=== PATIENT | male | born 1965 | race Caucasian/White ===

== ENCOUNTER 2017-03-08 15:08 | Emergency (ER) | payer OTHER ==
[~2017-03-08] VITALS: Ht 174 cm; Wt 107.1 kg
[~2017-03-08 15:08] MED LIST: CYAN100T PO; LPT/20 PO; MULT-506 PO; RABE20TA5 PO
[2017-03-08 15:20] VITALS: TEMP 37.2; Ht 174 cm; Wt 107.1 kg
[2017-03-08] MEDS ORDERED: ACETAMINOPHEN 500 MG TAB PO STA (17:49)
[2017-03-08] MEDS ORDERED: SODIUM CHLORIDE 0.9% 1000ML 500 ML IV STA (17:49)
--- NOTE | 2017-03-08 17:55 | EMERGENCY ROOM VISIT NOTE ---
History Report prepared by Codyibvictorino: Christina Seymour Under the Supervision of: Dr. William Ovalle M.D. First contact with patient: 17:44 Chief Complaint: KNEEPAIN Stated Complaint: KNEE PAIN History of Present Illness The patient is a 51 year old male who presents to the Emergency Room with complaints of constant knee pain that started yesterday. He reports around 0830 yesterday morning, he was unloading his van and tripped, falling out of the van and onto his right knee. He rates his discomfort as a 9/10. Ibuprofen, last taken at 1315, has provided moderate relief. He denies any history of knee infections or previous knee injuries. 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 Walking worsens his pain but he is still able to ambulate normally. He also complains of a headache, the chills and "aches all over" his body. He denies any allergies to antibiotics. He states the only daily medications he takes are for hyperlipidemia and GERD. Source of History: patient Onset: 0830 yesterday morning Position: knee (right) Symptom Intensity: 9/10 Timing: constant Modifying Factors (Worsening): movement (walking), other (pressure on the knee) Modifying Factors (Relieving): ibuprofen Associated Symptoms: + chills, + headache Review of Systems See HPI for pertinent positives & negatives. A total of 10 systems reviewed and were otherwise negative. Past Medical & Surgical Medical Problems: (1) ANXIETY STATE NOS (2) DEPRESSIVE DISORDER NEC (3) ESOPHAGEAL REFLUX (4) Hypercholesteremia (5) Kidney stone (6) OBSTRUCTIVE SLEEP APNEA (ADULT) (PEDIATRIC) Social History Smoking Status: Never Smoker Alcohol Use: occasionally Marital Status: Housing Status: lives with family Occupation Status: unemployed Current/Historical Medications Scheduled Amoxicillin & Pot Clavulanate (Augmentin 875-125 mg), 875 MG PO BID Atorvastatin (Atorvastatin Calcium), 20 MG PO HS Esomeprazole Magnesium (Nexium), 40 MG PO DAILY Multiple Vitamins W/ Minerals (One Daily Mens), 1 TAB PO DAILY Allergies Coded Allergies: No Known Allergies (Unverified , 03/08/17) Uncoded Allergies: CATS,DUST, HAY (Allergy, Unknown, 09/04/02) Physical Exam Vital Signs Date Time Temp Pulse Resp B/P (MAP) Pulse Ox O2 Delivery O2 Flow Rate FiO2 03/08/17 21:11 77 18 139/79 97 03/08/17 20:30 81 14 145/81 94 Room Air 03/08/17 18:05 93 17 160/82 97 Room Air 03/08/17 15:20 37.2 88 16 154/75 97 Room Air Physical Exam GENERAL: Patient is in no acute distress. HEENT: No acute trauma, normocephalic atraumatic, mucous membranes moist, no nasal congestion, no scleral icterus. NECK: No stridor, no adenopathy, no meningismus, trachea is midline. LUNGS: Clear to auscultation bilaterally, no wheeze, no rhonchi, breath sounds equal. HEART: Without murmurs gallops or rubs, regular rate and rhythm. ABDOMEN: Soft, nontender, bowel sounds positive, no hernias, no peritonitis. EXTREMITIES: Swelling anterior to the right patella, tenderness to touch. Erythema and warmth, no drainage. Movement of the knee joint produces no pain. NEUROLOGIC: Oriented x 3, no acute motor or sensory deficits, no focal weakness. SKIN: No rash, no jaundice, no diaphoresis. Medical Decision & Procedures ER Provider Diagnostic Interpretation: Radiology results as stated below per my review and radiologist interpretation: RIGHT KNEE 3 VIEWS CLINICAL HISTORY: 51 years-old Male presenting with fall, swelling Right. TECHNIQUE: Frontal, lateral, and sunrise views of the right knee were obtained. COMPARISON: 02/02/2012. FINDINGS: No acute fracture or malalignment. Minimal marginal osteophyte may be present at the medial compartment. Trace knee joint effusion. No displaced fracture of the patella. Prepatellar soft tissue swelling may be present. Remaining soft tissues within normal limits. IMPRESSION: No acute osseous injury of the right knee. Electronically signed by: Jared Martinez M.D. 03/08/2017 6:43 PM Laboratory Results 03/08/17 18:52 Red Blood Count 5.07, Mean Corpuscular Volume 84.6, Mean Corpuscular Hemoglobin 29.2, Mean Corpuscular Hemoglobin Concent 34.5, Mean Platelet Volume 11.2, Neutrophils (%) (Auto) 78.0, Lymphocytes (%) (Auto) 9.0, Monocytes (%) (Auto) 11.9, Eosinophils (%) (Auto) 1.0, Basophils (%) (Auto) 0.0, Neutrophils # (Auto ) 7.99, Lymphocytes # (Auto) 0.92, Monocytes # (Auto) 1.22, Eosinophils # (Auto ) 0.10, Basophils # (Auto) 0.00 03/08/17 18:52 Test 03/08/17 18:52 White Blood Count 10.24 K/uL (4.8-10.8) Red Blood Count 5.07 M/uL (4.7-6.1) Hemoglobin 14.8 g/dL (14.0-18.0) Hematocrit 42.9 % (42-52) Mean Corpuscular Volume 84.6 fL (80-100) Mean Corpuscular Hemoglobin 29.2 pg (25-34) Mean Corpuscular Hemoglobin Concent 34.5 g/dl (32-36) Platelet Count 125 K/uL (130-400) Mean Platelet Volume 11.2 fL (7.4-10.4) Neutrophils (%) (Auto) 78.0 % Lymphocytes (%) (Auto) 9.0 % Monocytes (%) (Auto) 11.9 % Eosinophils (%) (Auto) 1.0 % Basophils (%) (Auto) 0.0 % Neutrophils # (Auto) 7.99 K/uL (1.4-6.5) Lymphocytes # (Auto) 0.92 K/uL (1.2-3.4) Monocytes # (Auto) 1.22 K/uL (0.11-0.59) Eosinophils # (Auto) 0.10 K/uL (0-0.5) Basophils # (Auto) 0.00 K/uL (0-0.2) RDW Standard Deviation 40.5 fL (36.4-46.3) RDW Coefficient of Variation 13.3 % (11.5-14.5) Immature Granulocyte % (Auto) 0.1 % Immature Granulocyte # (Auto) 0.01 K/uL (0.00-0.02) Anion Gap 4.0 mmol/L (3-11) Est Creatinine Clear Calc Drug Dose 113.7 ml/min Estimated GFR () 109.9 Estimated GFR (Non- 94.8 BUN/Creatinine Ratio 18.5 (10-20) Calcium Level 9.3 mg/dl (8.5-10.1) Total Bilirubin 1.4 mg/dl (0.2-1) Aspartate Amino Transf (AST/SGOT) 16 U/L (15-37) Alanine Aminotransferase (ALT/SGPT) 27 U/L (12-78) Alkaline Phosphatase 76 U/L (45-117) Total Protein 7.8 gm/dl (6.4-8.2) Albumin 3.8 gm/dl (3.4-5.0) Globulin 4.0 gm/dl (2.5-4.0) Albumin/Globulin Ratio 1.0 (0.9-2) Laboratory results reviewed by me. Medications Administered Medications (Trade) Dose Ordered Sig/Irvin Route Start Time Stop Time Status Last Admin Dose Admin Sodium Chloride 500 ml @ 999 mls/hr Q31M STAT IV 03/08/17 17:49 03/08/17 18:19 DC 03/08/17 18:35 999 MLS/HR Acetaminophen (Tylenol Tab) 1,000 mg NOW STAT PO 03/08/17 17:49 03/08/17 17:52 DC 03/08/17 18:11 1,000 MG Ampicillin Sodium/ Sulbactam Sodium 3000 mg/Sodium Chloride 108 ml @ 200 mls/hr ONE ONCE IV 03/08/17 18:00 03/08/17 18:32 DC 03/08/17 18:00 200 MLS/HR Ketorolac Tromethamine (Toradol Inj) 30 mg NOW STAT IV 03/08/17 19:08 03/08/17 19:11 DC 03/08/17 19:20 30 MG ED Course 1746: The patient was evaluated in room B4. A complete history and physical exam was performed. 174: Acetaminophen 1000 mg PO, NSS 500 ml @ 999 mls/hr IV. 1800: Ampicillin Sodium/Sulbactam Sodium 3000 mg/NSS 108 ml @ 200 mls/hr IV. 1904: Nursing informed me the patient would like something for pain. I will place medication orders. 1907: Toradol 30 mg IV. 2045: I reevaluated the patient. He is feeling well. I discussed his results and discharge instructions and he verbalized complete understanding and agreement. 2100: Augmentin 875 mg PO. Medical Decision The differential diagnoses considered include septic joint, knee fracture or patellar fracture, cellulitis, pre-patellar bursitis, sepsis and bacteremia. There is no significant electrolyte abnormality. No kidney failure or hepatitis. There is no leukocytosis or concerning anemia. Right knee film does not show fracture or large joint effusion. Blood cultures are pending. The patient received IV saline, IV Toradol, oral Tylenol and IV Unasyn. The patient has a prepatellar bursitis. He will be discharged on Augmentin. Orthopedic follow-up was suggested in case this requires some sort of surgical intervention. The patient was encouraged to return if not improving or worsening. Medication Reconcilliation Current Medication List: was personally reviewed by me Blood Pressure Screening Patient's blood pressure: Elevated blood pressure Blood pressure disposition: Elevated BP felt to be situational Impression Primary Impression: Prepatellar bursitis Scribe Attestation The scribe's documentation has been prepared under my direction and personally reviewed by me in its entirety. I confirm that the note above accurately reflects all work, treatment, procedures, and medical decision making performed by me. Departure Information Dispostion Home / Self-Care Prescriptions Amoxicillin & Pot Clavulanate (Augmentin 875-125 mg) 1 Tab Tab 875 MG PO BID for 10 Days, #20 TAB 1 Refill Prov: William Ovalle M.D. 03/08/17 Referrals Evin Fisher M.D. (PCP) Patient Instructions My [facility] Additional Instructions augmentin 2x per day for 10 days see orthopedics and workers comp as discussed keep the leg elevated and stay off of the knee motrin/tylenol for pain and fever rest return for worsening symptoms or if not improving--this may need to be opened
[2017-03-08] MEDS ORDERED: AMPICILLIN/SULBACTAM SOD INJ 3,000 MG in SODIUM CHLORIDE 0.9% 100ML 100 ML IV ONE (18:00)
--- NOTE | 2017-03-08 18:44 | DIAGNOSTIC IMAGING REPORT ---
RIGHT KNEE 3 VIEWS CLINICAL HISTORY: 51 years-old Male presenting with fall, swelling Right. TECHNIQUE: Frontal, lateral, and sunrise views of the right knee were obtained. COMPARISON: 02/02/2012. FINDINGS: No acute fracture or malalignment. Minimal marginal osteophyte may be present at the medial compartment. Trace knee joint effusion. No displaced fracture of the patella. Prepatellar soft tissue swelling may be present. Remaining soft tissues within normal limits. IMPRESSION: No acute osseous injury of the right knee. Electronically signed by: Jared Martinez M.D. 03/08/2017 6:43 PM Dictated Date/Time: 03/08/2017 6:41 PM
[2017-03-08] MEDS ORDERED: NXM/40 PO (18:46)
[2017-03-08] MEDS ORDERED: MULT-106 PO (18:46)
[2017-03-08] MEDS ORDERED: KETOROLAC TROMETHAMINE 30 MG/ML VIAL IV STA (19:08)
[2017-03-08 19:23] LABS: BUN/CREATININE RATIO 18.5 (10-20); CALCIUM 9.3 mg/dl (8.5-10.1); CREATININE 0.94 mg/dl (0.60-1.40); POTASSIUM 3.8 mmol/L (3.5-5.1)
[2017-03-08 20:28] LABS: COMPLETE YES; HEMATOCRIT 42.9 % (42-52); IG% 0.1 %; LYMPH ABS # 0.92 K/uL (1.2-3.4); MEAN CELL VOLUME 84.6 fL (80-100); MEAN CORPUSCULAR HEMOGLOBIN 29.2 pg (25-34); MEAN CORPUSCULAR HGB CONC 34.5 g/dl (32-36); MEAN PLATELET VOLUME 11.2 fL (7.4-10.4); MONO % 11.9 %; PLATELET COUNT 125 K/uL (130-400); RED BLOOD COUNT 5.07 M/uL (4.7-6.1); WHITE BLOOD COUNT 10.24 K/uL (4.8-10.8)
[2017-03-08] MEDS ORDERED: AMOX875T PO (20:57)
[2017-03-08] MEDS ORDERED: AMOXICILLIN/CLAVULANATE TAB 875 MG TAB PO ONE (21:00)
[2017-03-08 21:11] VITALS: BP 139/79; PULSE 77; O2SAT 97
[2017-03-12] MEDS ORDERED: OXYC-57 PO (11:07)
[2017-03-12] MEDS ORDERED: DXY100 PO (11:07)
== END 2017-03-08 21:12 | disposition home or self-care (01) ==
LOC: C.EDB 15:09
DX: M70.41 Prepatellar bursitis, right knee (principal); E78.00 Pure hypercholesterolemia, unspecified; K21.9 Gastro-esophageal reflux disease without esophagitis; F41.9 Anxiety disorder, unspecified; F32.9 Major depressive disorder, single episode, unspecified; G47.33 Obstructive sleep apnea (adult) (pediatric)

== ENCOUNTER 2017-03-09 22:37 | Inpatient (IN) | payer OTHER ==
[~2017-03-09] VITALS: Ht 177.8 cm; Wt 105.0 kg
[~2017-03-09 22:37] MED LIST changes: +AMOX875T PO; -CYAN100T PO; +MULT-106 PO; -MULT-506 PO; +NXM/40 PO; -RABE20TA5 PO
--- NOTE | 2017-03-09 23:07 | EMERGENCY ROOM VISIT NOTE ---
History Report prepared by Isabel: Tacho Holder Under the Supervision of: Dr. Naila Swanson D.O. First contact with patient: 23:05 Chief Complaint: KNEEPAIN Stated Complaint: KNEE PAIN - INFLAMATION - FEVER - ACHING History of Present Illness The patient is a 51 year old male who presents to the Emergency Room with complaints of right knee pain beginning two days ago. He currently rates his discomfort a 9/10 in severity. The patient states that he was in the ED yesterday because he fell at work two days ago. 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 The patient notes that he was reaching for a tile in the back of the truck, and he slipped and fell on his knee; he does not know if his knee flexed. He states that he returned to the ED because his pain was increasing, and his erythema and pain spread further up and down his left leg. The patient reports that he is constantly weak, experiencing numbness in his leg, and a throbbing, continuous headache. He notes that it hurts to touch his head, and they are not like any other headaches he has experienced. The patient states that he has not taken his temperature, but he thinks he has a fever. He reports that whenever his temperature was taken in the hospital it was around 99 degrees Fahrenheit. The patient denies nausea and vomiting. He also denies a history of knee injuries and diabetes mellitus. The patient notes that when he was younger he had osteomyelitis to his left femur and left shoulder when he was younger. He states that he also takes cholesterol medication and GERD. The patient reports that he is in the ED on Workman's compensation. Source of History: patient Onset: two day ago Position: knee (right) Symptom Intensity: 9/10 Timing: constant Associated Symptoms: + headache, + weakness, + numbness, No nausea, No vomiting Review of Systems See HPI for pertinent positives & negatives. A total of 10 systems reviewed and were otherwise negative. Past Medical & Surgical Medical Problems: (1) ANXIETY STATE NOS (2) Cellulitis (3) DEPRESSIVE DISORDER NEC (4) ESOPHAGEAL REFLUX (5) Hypercholesteremia (6) Joint infection (7) Kidney stone (8) OBSTRUCTIVE SLEEP APNEA (ADULT) (PEDIATRIC) Family History Cancer Diabetes mellitus Gallbladder disease Hypertension Lung disease Social History Smoking Status: Never Smoker Alcohol Use: occasionally Marital Status: Housing Status: lives with family Occupation Status: unemployed Current/Historical Medications Scheduled Amoxicillin & Pot Clavulanate (Augmentin 875-125 mg), 875 MG PO BID Atorvastatin (Atorvastatin Calcium), 20 MG PO HS Esomeprazole Magnesium (Nexium), 40 MG PO DAILY Multiple Vitamins W/ Minerals (One Daily Mens), 1 TAB PO DAILY Allergies Coded Allergies: No Known Allergies (Unverified , 03/09/17) Physical Exam Vital Signs Date Time Temp Pulse Resp B/P (MAP) Pulse Ox O2 Delivery O2 Flow Rate FiO2 03/10/17 00:45 102 18 138/84 96 Room Air 03/09/17 23:30 Room Air 03/09/17 22:46 37.1 100 16 148/89 95 Room Air Physical Exam HEENT: Head - normocephalic and atraumatic Pupils are equal, round, and reactive to light. Extraocular eye muscles are intact, and sclera are anicteric. Nose - moist nasal mucosa without discharge. Mouth - moist buccal mucosa. Oropharynx is nonerythematous and there is no tonsillar exudate or edema noted. Neck: Supple; no JVD, nuchal rigidity, cervical lymphadenopathy. Heart: Tachycardic rate and regular rhythm. There is a normal S1 and S2 with no murmurs, clicks, or gallops appreciated. Lungs: Clear to auscultation bilaterally with no wheezes, rales, or rhonchi. Abdomen: Soft, completely nontender, nondistended, with good bowel sounds. There are no palpable pulsatile masses or hepatosplenomegaly. There is no guarding, rigidity, or rebound noted. Extremities: Right knee: erythema surrounding right knee down to the mid-calf, lymphangitic spread to the medial aspect of right thigh. Severe, exquisite pain with any movement of the right knee. Skin: Hot and dry with good turgor and no rashes. Medical Decision & Procedures ER Provider Diagnostic Interpretation: I reviewed the right knee x-ray from yesterday. Laboratory Results 03/09/17 23:30 Red Blood Count 4.83, Mean Corpuscular Volume 83.9, Mean Corpuscular Hemoglobin 30.4, Mean Corpuscular Hemoglobin Concent 36.3, Mean Platelet Volume 11.3, Neutrophils (%) (Auto) 77.4, Lymphocytes (%) (Auto) 11.3, Monocytes (%) (Auto) 8.7, Eosinophils (%) (Auto) 2.1, Basophils (%) (Auto) 0.1, Neutrophils # (Auto) 5.89, Lymphocytes # (Auto) 0.86, Monocytes # (Auto) 0.66, Eosinophils # (Auto) 0.16, Basophils # (Auto) 0.01 03/09/17 23:30 Test 03/09/17 23:30 03/09/17 23:45 03/09/17 23:55 White Blood Count 7.61 K/uL (4.8-10.8) Red Blood Count 4.83 M/uL (4.7-6.1) Hemoglobin 14.7 g/dL (14.0-18.0) Hematocrit 40.5 % (42-52) Mean Corpuscular Volume 83.9 fL (80-100) Mean Corpuscular Hemoglobin 30.4 pg (25-34) Mean Corpuscular Hemoglobin Concent 36.3 g/dl (32-36) Platelet Count 149 K/uL (130-400) Mean Platelet Volume 11.3 fL (7.4-10.4) Neutrophils (%) (Auto) 77.4 % Lymphocytes (%) (Auto) 11.3 % Monocytes (%) (Auto) 8.7 % Eosinophils (%) (Auto) 2.1 % Basophils (%) (Auto) 0.1 % Neutrophils # (Auto) 5.89 K/uL (1.4-6.5) Lymphocytes # (Auto) 0.86 K/uL (1.2-3.4) Monocytes # (Auto) 0.66 K/uL (0.11-0.59) Eosinophils # (Auto) 0.16 K/uL (0-0.5) Basophils # (Auto) 0.01 K/uL (0-0.2) RDW Standard Deviation 40.1 fL (36.4-46.3) RDW Coefficient of Variation 13.2 % (11.5-14.5) Immature Granulocyte % (Auto) 0.4 % Immature Granulocyte # (Auto) 0.03 K/uL (0.00-0.02) Erythrocyte Sedimentation Rate 62 mm/hr (0-14) Prothrombin Time 9.7 SECONDS (9.0-12.0) Prothromb Time International Ratio 0.9 (0.9-1.1) Activated Partial Thromboplast Time 29.3 SECONDS (21.0-31.0) Partial Thromboplastin Ratio 1.1 Anion Gap 4.0 mmol/L (3-11) Est Creatinine Clear Calc Drug Dose 109.5 ml/min Estimated GFR () 103.2 Estimated GFR (Non- 89.1 BUN/Creatinine Ratio 18.5 (10-20) Calcium Level 9.4 mg/dl (8.5-10.1) Total Bilirubin 0.6 mg/dl (0.2-1) Aspartate Amino Transf (AST/SGOT) 101 U/L (15-37) Alanine Aminotransferase (ALT/SGPT) 93 U/L (12-78) Alkaline Phosphatase 106 U/L (45-117) C-Reactive Protein 12.40 mg/dl (0-0.29) Total Protein 7.8 gm/dl (6.4-8.2) Albumin 3.5 gm/dl (3.4-5.0) Globulin 4.3 gm/dl (2.5-4.0) Albumin/Globulin Ratio 0.8 (0.9-2) Lyme Disease IgG Antibody NEG (NEG) Lyme Disease IgM Antibody NEG (NEG) Urine Color YELLOW Urine Appearance CLEAR (CLEAR) Urine pH 5.0 (4.5-7.5) Urine Specific [place] 1.030 (1.000-1.030) Urine Protein TRACE (NEG) Urine Glucose (UA) 1+ (NEG) Urine Ketones TRACE (NEG) Urine Occult Blood TRACE (NEG) Urine Nitrite NEG (NEG) Urine Bilirubin NEG (NEG) Urine Urobilinogen NEG (NEG) Urine Leukocyte Esterase NEG (NEG) Urine WBC (Auto) 1-5 /hpf (0-5) Urine RBC (Auto) 0-4 /hpf (0-4) Urine Hyaline Casts (Auto) 0 /lpf (0-5) Urine Epithelial Cells (Auto) 5-10 /lpf (0-5) Urine Bacteria (Auto) NEG (NEG) Bedside Lactic Acid Venous 1.22 mmol/L (0.90-1.70) Laboratory results per my review. Medications Administered Medications (Trade) Dose Ordered Sig/Irvin Route Start Time Stop Time Status Last Admin Dose Admin Ketorolac Tromethamine (Toradol Inj) 30 mg NOW STAT IV 03/09/17 23:18 03/09/17 23:21 DC 03/09/17 23:41 30 MG Morphine Sulfate (MoRPHine SULFATE INJ) 6 mg NOW STAT IV 03/09/17 23:18 03/09/17 23:21 DC 03/09/17 23:40 6 MG Ondansetron HCl (Zofran Inj) 4 mg NOW STAT IV 03/09/17 23:18 03/09/17 23:21 DC 03/09/17 23:40 4 MG Sodium Chloride 1,000 ml @ 999 mls/hr Q1H1M STAT IV 03/10/17 00:27 03/10/17 01:27 DC 03/10/17 00:31 999 MLS/HR Morphine Sulfate (MoRPHine SULFATE INJ) 6 mg NOW STAT IV 03/10/17 00:40 03/10/17 00:41 DC 03/10/17 00:45 6 MG Ceftriaxone Sodium (Rocephin Inj) 1 gm NOW STAT IV 03/10/17 00:40 03/10/17 00:43 DC 03/10/17 00:49 1 GM Vancomycin HCl 2000 mg/Sodium Chloride 540 ml @ 200 mls/hr 0115 IV 03/10/17 01:15 03/10/17 03:56 DC 03/10/17 01:20 200 MLS/HR Procedure 2318: Ordered Zofran Inj 4mg IV, Morphine Sulfate 6mg IV, Toradol Inj 30mg 0027: Ordered Sodium Chloride 1000 ml @ 999 mls/hr IV. 0040: Ordered Rocephin Inj 1gm IV, Morphine Sulfate 6mg IV, 2 g of IV vancomycin ED Course 2312: The patient was evaluated in room C09. A complete history and physical examination were performed. Nursing notes and previous electronic medical records were reviewed. IV lock was established and labs were drawn as above. A septic protocol was performed. 2318: Ordered Zofran Inj 4mg IV, Morphine Sulfate 6mg IV, Toradol Inj 30mg 0027: Ordered Sodium Chloride 1000 ml @ 999 mls/hr IV. 0036: Upon reevaluation, I discussed findings and results with the patient. He verbalized agreement of the treatment plan. He is having a lot more pain and is being place on an antibiotic. 0040: Ordered Rocephin Inj 1gm IV, vancomycin-2 g IV, and more Morphine Sulfate 6mg IV for persistent right knee pain. 0124: I spoke with Dr. Anne of the [facility] Hospitalist Service. The patient will be evaluated for further management and care. Medical Decision The patient is a 51 year old male who presents to the ED with right knee pain. Differential diagnosis includes sepsis, cellulitis, septic joint, prepatellar bursitis, osteomyelitis Lab results show: SED rate of 62, normal WBC, normal H&H, lactic acid of 1.2, normal glucose and renal function, total bilirubin of 0.6, AST of 101, ALT of 93 , c-reactive protein of 104. Urinalysis: trace ketone, blood, and protein This is a patient who was seen here yesterday for right knee pain. He had no erythema around the knee, no systemic symptoms, and no fever. He developed the symptoms today and now has exquisite discomfort with even slight movement of the right knee. The patient has a previous history of osteomyelitis to the left hip and left shoulder from staff. A complete septic workup was performed. He was treated with IV vancomycin and IV Rocephin. I discussed the case with the [facility] Hospitalist and they will evaluate for further management have patient evaluated by orthopedics. Consults Time Called: 39 Consulting Physician: Dr. Anne, [facility] Hospitalist Returned Call: [phone] Anne of the [facility] Hospitalist Service. The patient will be evaluated for further management and care. Impression Primary Impression: Septic arthritis of knee, right Scribe Attestation The scribe's documentation has been prepared under my direction and personally reviewed by me in its entirety. I confirm that the note above accurately reflects all work, treatment, procedures, and medical decision making performed by me. Departure Information Dispostion Being Evaluated By Hospitalist Referrals No Doctor, Assigned (PCP) Patient Instructions My [facility]
[2017-03-09] MEDS ORDERED: KETOROLAC TROMETHAMINE 30 MG/ML VIAL IV STA (23:18)
[2017-03-09] MEDS ORDERED: ONDANSETRON INJ 2 MG/ML 2 ML VIAL IV STA (23:18)
[2017-03-09] MEDS ORDERED: MoRPHine SULFATE 10 MG/ML CARP/VIAL IV STA (23:18)
[2017-03-09 23:50] LABS: BASO % 0.1 %; BASO ABS # 0.01 K/uL (0-0.2); COMPLETE YES; EOS % 2.1 %; HEMATOCRIT 40.5 % (42-52); IG% 0.4 %; LYMPH % 11.3 %; LYMPH ABS # 0.86 K/uL (1.2-3.4); MEAN CELL VOLUME 83.9 fL (80-100); MEAN CORPUSCULAR HEMOGLOBIN 30.4 pg (25-34); MEAN CORPUSCULAR HGB CONC 36.3 g/dl (32-36); MEAN PLATELET VOLUME 11.3 fL (7.4-10.4); MONO % 8.7 %; NEUT % 77.4 %; PLATELET COUNT 149 K/uL (130-400); RED BLOOD COUNT 4.83 M/uL (4.7-6.1); WHITE BLOOD COUNT 7.61 K/uL (4.8-10.8)
[2017-03-10] LABS: INR 0.9 (0.9-1.1); PARTIAL THROMBOPLASTIN RATIO 1.1; PROTHROMBIN TIME (PATIENT) 9.7 SECONDS (9.0-12.0)
[2017-03-10 00:05] LABS: URINE APPEARANCE CLEAR (CLEAR); URINE BILIRUBIN NEG (NEG); URINE COLOR YELLOW; URINE NITRITE NEG (NEG); UROBILINOGEN NEG (NEG); ZZUR CULT IF INDIC CLEAN CATCH NO
[2017-03-10 00:07] LABS: MANUAL MICROSCOPIC REQUIRED? NO; REVIEW REQ? NO
[2017-03-10 00:11] LABS: BUN/CREATININE RATIO 18.5 (10-20); C-REACTIVE PROTEIN 12.4 mg/dl (0-0.29); CALCIUM 9.4 mg/dl (8.5-10.1); CREATININE 0.99 mg/dl (0.60-1.40); POTASSIUM 3.7 mmol/L (3.5-5.1)
[2017-03-10 00:16] LABS: ALB/GLOB RATIO 0.8 (0.9-2)
[2017-03-10] MEDS ORDERED: SODIUM CHLORIDE 0.9% 1000ML 1,000 ML IV STA (00:27)
[2017-03-10] MEDS ORDERED: CEFTRIAXONE SOD INJ 1 GM ADDVIAL IV STA (00:40)
[2017-03-10] MEDS ORDERED: MoRPHine SULFATE 10 MG/ML CARP/VIAL IV STA (00:40)
[2017-03-10] MEDS ORDERED: VANCOMYCIN INJ 2,000 MG in SODIUM CHLORIDE 0.9% 250ML 250 ML IV STA (00:40)
[2017-03-10] MEDS ORDERED: ZOLPIDEM TARTRATE 5 MG TAB PO PRN (01:15)
[2017-03-10] MEDS ORDERED: VANCOMYCIN INJ 2,000 MG in SODIUM CHLORIDE 0.9% 500ML 500 ML IV SCH (01:15)
[2017-03-10] MEDS ORDERED: ONDANSETRON INJ 2 MG/ML 2 ML VIAL IV PRN (01:15)
[2017-03-10] MEDS ORDERED: MAGNESIUM HYDROXIDE SUSP 30 ML UDC PO PRN (01:15)
[2017-03-10] MEDS ORDERED: POLYETHYLENE (MIRALAX) 17 GM PACK PO PRN (01:15)
[2017-03-10] MEDS ORDERED: ALUMINUM/MAGNESIUM/SIMETH (MAALOX MAX) 30 ML UDC PO PRN (01:15)
--- NOTE | 2017-03-10 01:39 | History and Physical ---
History & Physical Date & Time of Service: Mar 10, 2017 at 01:23 Chief Complaint: Knee Pain - Inflamation - Fever - Aching Primary Care Physician: [facility] [facility] History of Present Illness Source: patient 51 y/o M Hx HPL. Pt suffered trauma to his R knee 3 days prior. He developed warmth and inflammation and presented to the ER one day ago. He was evaluated in the ER and discharged with a course of Augmentin. Since then the affected area has expanded. He now describes severe pain in his knee, a headache, generalized body aches and a low grade fever. 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 daily Smoking Status: Never Smoker Marital Status: Occupational Status: unemployed Multi-Drug Resistant Organisms History of MDRO: No Allergies Coded Allergies: No Known Allergies (Unverified , 03/09/17) Home Medications Scheduled Amoxicillin & Pot Clavulanate (Augmentin 875-125 mg), 875 MG PO BID Atorvastatin (Atorvastatin Calcium), 20 MG PO HS Esomeprazole Magnesium (Nexium), 40 MG PO DAILY Multiple Vitamins W/ Minerals (One Daily Mens), 1 TAB PO DAILY Review of Systems Constitutional: + fever, + chills, + sweats Eyes: No worsening of vision, No eye pain ENT: No hearing loss, No unusual epistaxis, No nasal symptoms Respiratory: No cough, No sputum, No wheezing Cardiovascular: No chest pain, No orthopnea, No PND Abdomen: No pain, No nausea, No vomiting Musculoskeletal: + joint pain, + muscle pain (generalized body aches - severe pain R knee) Genitourinary - Male: No hematuria, No dysuria, No urinary frequency, No urinary urgency Neurologic: No memory loss, No paralysis, No weakness Psychiatric: No depression symptoms Endocrine: No fatigue Hematologic / Lymphatic: No abnormal bleeding/bruising Integumentary: + problem reported (Redness/inflamation - knee and surrounding skin) Physical Exam Vital Signs Date Time Temp Pulse Resp B/P (MAP) Pulse Ox O2 Delivery O2 Flow Rate FiO2 03/09/17 23:30 Room Air 03/09/17 22:46 37.1 100 16 148/89 95 Room Air General Appearance: WD/WN, no apparent distress Head: normocephalic Eyes: normal inspection ENT: normal ENT inspection, pharynx normal Neck: supple, no JVD Respiratory/Chest: chest non-tender, lungs clear, normal breath sounds, no respiratory distress, no accessory muscle use Cardiovascular: regular rate, rhythm, no edema, no gallop Abdomen/GI: normal bowel sounds, non tender, soft Back: normal inspection, no CVA tenderness, no muscle spasm, normal range of motion Extremities/Musculoskelatal: + pertinent finding (Inflamed, very tender R knee ) 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, no motor/sensory deficits, alert, normal mood/affect, normal reflexes, oriented x 3 Skin: + pertinent finding (INflammation and redeness extending from R knee over quad and irving) Diagnostics Laboratory Results Results Past 24 Hours Test 03/09/17 23:30 03/09/17 23:45 03/09/17 23:55 03/10/17 01:20 Range/Units White Blood Count 7.61 4.8-10.8 K/uL Red Blood Count 4.83 4.7-6.1 M/uL Hemoglobin 14.7 14.0-18.0 g/dL Hematocrit 40.5 42-52 % Mean Corpuscular Volume 83.9 80-100 fL Mean Corpuscular Hemoglobin 30.4 25-34 pg Mean Corpuscular Hemoglobin Concent 36.3 32-36 g/dl Platelet Count 149 130-400 K/uL Mean Platelet Volume 11.3 7.4-10.4 fL Neutrophils (%) (Auto) 77.4 % Lymphocytes (%) (Auto) 11.3 % Monocytes (%) (Auto) 8.7 % Eosinophils (%) (Auto) 2.1 % Basophils (%) (Auto) 0.1 % Neutrophils # (Auto) 5.89 1.4-6.5 K/uL Lymphocytes # (Auto) 0.86 1.2-3.4 K/uL Monocytes # (Auto) 0.66 0.11-0.59 K/uL Eosinophils # (Auto) 0.16 0-0.5 K/uL Basophils # (Auto) 0.01 0-0.2 K/uL RDW Standard Deviation 40.1 36.4-46.3 fL RDW Coefficient of Variation 13.2 11.5-14.5 % Immature Granulocyte % (Auto) 0.4 % Immature Granulocyte # (Auto) 0.03 0.00-0.02 K/uL Erythrocyte Sedimentation Rate 62 0-14 mm/hr Prothrombin Time 9.7 9.0-12.0 SECONDS Prothromb Time International Ratio 0.9 0.9-1.1 Activated Partial Thromboplast Time 29.3 21.0-31.0 SECONDS Partial Thromboplastin Ratio 1.1 Sodium Level 137 136-145 mmol/L Potassium Level 3.7 3.5-5.1 mmol/L Chloride Level 105 98-107 mmol/L Carbon Dioxide Level 28 21-32 mmol/L Anion Gap 4.0 3-11 mmol/L Blood Urea Nitrogen 18 7-18 mg/dl Creatinine 0.99 0.60-1.40 mg/dl Est Creatinine Clear Calc Drug Dose 109.5 ml/min Estimated GFR () 103.2 Estimated GFR (Non- 89.1 BUN/Creatinine Ratio 18.5 10-20 Random Glucose 109 70-99 mg/dl Calcium Level 9.4 8.5-10.1 mg/dl Total Bilirubin 0.6 0.2-1 mg/dl Aspartate Amino Transf (AST/SGOT) 101 15-37 U/L Alanine Aminotransferase (ALT/SGPT) 93 12-78 U/L Alkaline Phosphatase 106 45-117 U/L C-Reactive Protein 12.40 0-0.29 mg/dl Total Protein 7.8 6.4-8.2 gm/dl Albumin 3.5 3.4-5.0 gm/dl Globulin 4.3 2.5-4.0 gm/dl Albumin/Globulin Ratio 0.8 0.9-2 Urine Color YELLOW Urine Appearance CLEAR CLEAR Urine pH 5.0 4.5-7.5 Urine Specific [place] 1.030 1.000-1.030 Urine Protein TRACE NEG Urine Glucose (UA) 1+ NEG Urine Ketones TRACE NEG Urine Occult Blood TRACE NEG Urine Nitrite NEG NEG Urine Bilirubin NEG NEG Urine Urobilinogen NEG NEG Urine Leukocyte Esterase NEG NEG Urine WBC (Auto) 1-5 0-5 /hpf Urine RBC (Auto) 0-4 0-4 /hpf Urine Hyaline Casts (Auto) 0 0-5 /lpf Urine Epithelial Cells (Auto) 5-10 0-5 /lpf Urine Bacteria (Auto) NEG NEG Bedside Lactic Acid Venous 1.22 0.90-1.70 mmol/L Microbiology Results 03/09/17 Blood Culture, Received Pending 03/09/17 Blood Culture, Received Pending Diagnostic Radiology XR knee: No acute fracture or malalignment. Minimal marginal osteophyte may be present at the medial compartment. Trace knee joint effusion. No displaced fracture of the patella. Prepatellar soft tissue swelling may be present. Remaining soft tissues within normal limits. Impression Assessment and Plan 51 y/o M Hx HPL. Pt suffered trauma to his R knee 3 days prior. He developed warmth and inflammation and presented to the ER one day ago. He was evaluated in the ER and discharged with a course of Augmentin. Since then the affected area has expanded. He now describes severe pain in his knee, a headache, generalized body aches and a low grade fever. 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 Pt is admitted for cellulitis and suspected joint infection. 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 Provided with Toradol and PRN Oxycodone for pain. Blood cultures are pending. We will continue Lipitor for HPL. Full code - Heparin prophylaxis Total time for this admit including review of labs, meds, imaging, records - discussion with pt and ER attending - 35 min Level of Care Med/Surg Resuscitation Status FULL RESUSCITATION VTE Prophylaxis VTE Risk Assessment Done? Y/N: Yes Risk Level: Low Given or contraindicated: Unfractionated heparin SQ
[2017-03-10 01:45] VITALS: Ht 177.8 cm; Wt 105.0 kg
[2017-03-10 01:47] VITALS: BP 136/86; PULSE 73; TEMP 37.1; O2SAT 97
[2017-03-10 02:14] LABS: LYME DISEASE AB IGG NEG (NEG); LYME DISEASE AB IGM NEG (NEG)
[2017-03-10] MEDS: NSS + 20MEQ KCL 1000ML 1,000 ML IV SCH ×2 (02:36→13:25)
[2017-03-10] MEDS: OXYCODONE HCL IR 5 MG TAB (IMMEDIATE RELEASE) PO PRN ×4 (02:39→23:14)
[2017-03-10] MEDS ORDERED: VANCOMYCIN CONSULT ACTIVE PRN (03:15)
--- NOTE | 2017-03-10 03:19 | Pharmacy Progress Note ---
Pharmacy Antibiotic Consult Date of Service: Mar 10, 2017. Pharmacy Dosing Scope Pharmacy is consulted to initiate VANCOMYCIN IV dosing therapy, order appropriate labs and adjust drug dose/frequency. Subjective The patient is a 51 year old male admitted on Mar 10, 2017 at 01:18. Objective Height (Feet): 5 Height (Inches): 10.00 Weight (Kilograms): 105.000 Lab Results (24hrs): Test 03/09/17 23:30 03/09/17 23:45 03/09/17 23:55 White Blood Count 7.61 K/uL (4.8-10.8) Red Blood Count 4.83 M/uL (4.7-6.1) Hemoglobin 14.7 g/dL (14.0-18.0) Hematocrit 40.5 % (42-52) Mean Corpuscular Volume 83.9 fL (80-100) Mean Corpuscular Hemoglobin 30.4 pg (25-34) Mean Corpuscular Hemoglobin Concent 36.3 g/dl (32-36) Platelet Count 149 K/uL (130-400) Mean Platelet Volume 11.3 fL (7.4-10.4) Neutrophils (%) (Auto) 77.4 % Lymphocytes (%) (Auto) 11.3 % Monocytes (%) (Auto) 8.7 % Eosinophils (%) (Auto) 2.1 % Basophils (%) (Auto) 0.1 % Neutrophils # (Auto) 5.89 K/uL (1.4-6.5) Lymphocytes # (Auto) 0.86 K/uL (1.2-3.4) Monocytes # (Auto) 0.66 K/uL (0.11-0.59) Eosinophils # (Auto) 0.16 K/uL (0-0.5) Basophils # (Auto) 0.01 K/uL (0-0.2) RDW Standard Deviation 40.1 fL (36.4-46.3) RDW Coefficient of Variation 13.2 % (11.5-14.5) Immature Granulocyte % (Auto) 0.4 % Immature Granulocyte # (Auto) 0.03 K/uL (0.00-0.02) Erythrocyte Sedimentation Rate 62 mm/hr (0-14) Prothrombin Time 9.7 SECONDS (9.0-12.0) Prothromb Time International Ratio 0.9 (0.9-1.1) Activated Partial Thromboplast Time 29.3 SECONDS (21.0-31.0) Partial Thromboplastin Ratio 1.1 Sodium Level 137 mmol/L (136-145) Potassium Level 3.7 mmol/L (3.5-5.1) Chloride Level 105 mmol/L (98-107) Carbon Dioxide Level 28 mmol/L (21-32) Anion Gap 4.0 mmol/L (3-11) Blood Urea Nitrogen 18 mg/dl (7-18) Creatinine 0.99 mg/dl (0.60-1.40) Est Creatinine Clear Calc Drug Dose 109.5 ml/min Estimated GFR () 103.2 Estimated GFR (Non- 89.1 BUN/Creatinine Ratio 18.5 (10-20) Random Glucose 109 mg/dl (70-99) Calcium Level 9.4 mg/dl (8.5-10.1) Total Bilirubin 0.6 mg/dl (0.2-1) Aspartate Amino Transf (AST/SGOT) 101 U/L (15-37) Alanine Aminotransferase (ALT/SGPT) 93 U/L (12-78) Alkaline Phosphatase 106 U/L (45-117) C-Reactive Protein 12.40 mg/dl (0-0.29) Total Protein 7.8 gm/dl (6.4-8.2) Albumin 3.5 gm/dl (3.4-5.0) Globulin 4.3 gm/dl (2.5-4.0) Albumin/Globulin Ratio 0.8 (0.9-2) Lyme Disease IgG Antibody NEG (NEG) Lyme Disease IgM Antibody NEG (NEG) Urine Color YELLOW Urine Appearance CLEAR (CLEAR) Urine pH 5.0 (4.5-7.5) Urine Specific [place] 1.030 (1.000-1.030) Urine Protein TRACE (NEG) Urine Glucose (UA) 1+ (NEG) Urine Ketones TRACE (NEG) Urine Occult Blood TRACE (NEG) Urine Nitrite NEG (NEG) Urine Bilirubin NEG (NEG) Urine Urobilinogen NEG (NEG) Urine Leukocyte Esterase NEG (NEG) Urine WBC (Auto) 1-5 /hpf (0-5) Urine RBC (Auto) 0-4 /hpf (0-4) Urine Hyaline Casts (Auto) 0 /lpf (0-5) Urine Epithelial Cells (Auto) 5-10 /lpf (0-5) Urine Bacteria (Auto) NEG (NEG) Bedside Lactic Acid Venous 1.22 mmol/L (0.90-1.70) Micro Results: * 03/09/17 -- Blood Cx x 2 -- pending Recent Pertinent Medications Item Value Date Time Clindamycin 54 ml @ 100 mls/hr 03/10/17 0700 Phosphate 600 mg/ Q8H/IV Dextrose Assessment & Plan 51yo male admitted with cellulitis s/p trauma to the knee area a few days ago. Renal function is good. Patient reports a remote history of staph osteo. Blood cx are pending. VANCOMYCIN: * Loading dose: VANCOMYCIN 2000mg (~19mg/kg) IV X 1 dose then VANCOMYCIN 1500mg (~14mg/kg) IV every 10 hours. * Estimated Pk parameters: Vd ~0.7 L/kg ke ~0.094 t 1/2 ~8 hours * Goal trough level estimate: between 15 - 20 mcg/mL. * Trough level has been ordered for: @ 0600. Pharmacy will continue to follow and will adjust dose/frequency as necessary. Thank you
[2017-03-10] MEDS: KETOROLAC TROMETHAMINE 30 MG/ML VIAL IV PRN ×2 (04:34→23:15)
[2017-03-10] MEDS: CLINDAMYCIN IV 600 MG in DEXTROSE 5% 50ML 50 ML IV SCH ×3 (06:33→22:23)
[2017-03-10 07:15] VITALS: O2SAT 95
[2017-03-10 07:29] VITALS: BP 125/81; PULSE 71; TEMP 36.6; O2SAT 95
[2017-03-10] MEDS: PANTOprazole SOD 40 MG TAB PO SCH (08:55)
[2017-03-10] MEDS ORDERED: VANCOMYCIN INJ 1,000 MG in SODIUM CHLORIDE 0.9% 250ML 250 ML IV SCH (09:00)
[2017-03-10] MEDS: VANCOMYCIN INJ 1,500 MG in SODIUM CHLORIDE 0.9% 500ML 500 ML IV SCH ×2 (10:02→19:36)
[2017-03-10] MEDS: MoRPHine SULFATE 2 MG/ML CARP IV PRN ×3 (10:07→19:36)
--- NOTE | 2017-03-10 10:35 | ORTHOPEDIC CONSULTATION ---
DATE OF CONSULTATION: 03/10/2017 CHIEF COMPLAINT: Possible infected right knee. HISTORY OF PRESENT ILLNESS: Gulshan is a pleasant 51-year-old male who was doing a lot a recent tile work on his knees about 5 days ago. He began noticing some knee soreness and swelling at that time. Then 3 days ago, he fell outside of his truck at work directly on to his flexed right knee. He did report the incident. The following day, his symptoms worsened, he noticed swelling in the front of his knee and increased warmth and redness. He went to [facility] and then he was sent directly to the Emergency Room. The Emergency Room evaluated him and sent him home with Augmentin. The following day, the redness continued to spread. He came back to the Emergency Room and was admitted to the medical service. Orthopedics was consulted to rule out an infected knee. He does have history of a couple strange orthopedic infections. When he was in the 9th grade during football practice, he said he suddenly began having shoulder pain. He was then diagnosed with a staph infection of his shoulder and was out for 2 months for treatment. Two years after that, he than began having leg pain. He had no lacerations, but x-ray showed eating away of the lateral cortex of the bone and a staph infection in that tract to the lateral cortex of the femur. He underwent an open irrigation and debridement of that and they were able to get resolved. He has never had symptoms like this before with his right knee. He has significant pain mostly in the very front aspect of his knee. He is otherwise neurovascularly intact. PAST MEDICAL HISTORY: Significant for anxiety, depression, GERD, hyperlipidemia, kidney stones, and COPD. HOME MEDICATIONS: Include Augmentin 875 twice a day given by the Emergency Room to this current infection, atorvastatin 20 mg at night, Nexium 40 mg daily, and daily multivitamin. ALLERGIES: No known drug allergies. FAMILY HISTORY: Noncontributory. SOCIAL HISTORY: He does not smoke. He rarely drinks. 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 He is currently and employed by [employer] REVIEW OF SYSTEMS: He complains of right knee pain. All other pertinent review of systems are negative. PHYSICAL EXAMINATION: RIGHT KNEE: There does not appear to be an effusion of the knee, but there is a lot of swelling on the prepatellar bursa. It is very boggy on the anterior aspect. There is some redness that extends proximally and distally and looks to be like a cellulitic infection. It does not appear to be a septic bursitis at this point and certainly no signs of a septic joint. He does not have any pain in the back of his joint or along the medial or lateral retinaculum. All of his pain is located anteriorly. He has very limited range of motion of his knee because of the anterior knee pain. X-rays reviewed from his initial admission are essentially negative. LABS: He has a white count of 7.61. His sed rate is 62. His CRP is 12.4. IMPRESSION: Prepatellar bursitis of the right knee with cellulitis. PLAN: I certainly do not see signs of a septic joint. I do not want to stick a needle into the joint for aspiration with a cellulitis around it with fear of pushing an infection into the joint itself. All of his swelling appears to be in the prepatellar bursa. I do think that this is a septic bursitis. It seems to be more of a cellulitis that is spreading around his leg. I think he is best treated with continued IV antibiotics. I will follow him closely. The cellulitis should start to subside in a couple days. We will keep him on the oral pain medications at this time, he can be weightbearing as tolerated and I will continue to follow him closely and hopefully his symptoms will not worsen. ELENI
[2017-03-10] MEDS ORDERED: NURSING VERBAL MED ORDER ONE (10:45)
[2017-03-10] MEDS: HEPARIN SOD 5000 UNIT/0.5 ML CARP SQ SCH ×2 (15:26→21:27)
[2017-03-10 15:40] VITALS: BP 149/76; PULSE 83; TEMP 36.5; O2SAT 97
[2017-03-10] MEDS: ATORVASTATIN 20 MG TAB PO SCH (21:26)
[2017-03-10] MEDS: ACETAMINOPHEN 325 MG TAB PO PRN (22:28)
[2017-03-10 22:45] VITALS: PULSE 83; O2SAT 98
[2017-03-10 23:24] VITALS: BP 169/90; PULSE 77; TEMP 37.3; O2SAT 95
[2017-03-11] MEDS: MoRPHine SULFATE 2 MG/ML CARP IV PRN ×4 (00:42→19:19)
[2017-03-11] MEDS ORDERED: VANCOMYCIN TROUGH SCH (05:30)
[2017-03-11] MEDS: HEPARIN SOD 5000 UNIT/0.5 ML CARP SQ SCH ×3 (06:08→21:32)
[2017-03-11] MEDS: VANCOMYCIN INJ 1,500 MG in SODIUM CHLORIDE 0.9% 500ML 500 ML IV SCH ×3 (06:08→21:25)
[2017-03-11 06:15] LABS: CREATININE 0.87 mg/dl (0.60-1.40)
[2017-03-11 07:26] VITALS: BP 134/83; PULSE 71; TEMP 37; O2SAT 95
[2017-03-11] MEDS: OXYCODONE HCL IR 5 MG TAB (IMMEDIATE RELEASE) PO PRN ×3 (07:47→23:43)
[2017-03-11] MEDS: ACETAMINOPHEN 325 MG TAB PO PRN ×3 (07:48→23:45)
[2017-03-11] MEDS: CLINDAMYCIN IV 600 MG in DEXTROSE 5% 50ML 50 ML IV SCH ×3 (07:48→22:36)
[2017-03-11] MEDS: PANTOprazole SOD 40 MG TAB PO SCH (07:48)
--- NOTE | 2017-03-11 11:02 | Pharmacy Progress Note ---
Pharmacy Antibiotic Prog Note Date of Service Mar 11, 2017. Subjective The patient is currently receiving vancomycin 1500 mg IV every 10 hours. The patient is currently on day # 2 of vancomycin IV therapy. Objective Height (Feet): 5 Height (Inches): 10.00 Weight (Kilograms): 105.000 Lab Results (24hrs): Test 03/11/17 05:32 Creatinine 0.87 mg/dl (0.60-1.40) Est Creatinine Clear Calc Drug Dose 124.6 ml/min Estimated GFR () 117.5 Estimated GFR (Non- 101.3 Vancomycin Level Trough 8.2 mcg/ml (SEE COMMENT) Assessment & Plan Assessment * 51 yo M with cellulitis of knee. Per orthopedic progress note, does not appear to be a septic bursitis / septic joint. * SCr stable and at/near baseline * Goal vancomycin trough 10-15 mcg/mL for cellulitis. However, would prefer to be towards the upper end of this range. * Trough of 8.2 mcg/mL is subtherapeutic. Will decrease interval slightly. * Trough prior to 4th dose of new regimen Plan * Increase vancomycin 1500 mg IV q8h * Trough 03/12 @ 1330 Pharmacy will continue to follow and will adjust dose/frequency as necessary. Thank you
--- NOTE | 2017-03-11 11:18 | PROGRESS NOTE ---
DATE: 03/11/2017 CHIEF COMPLAINT: Right knee bursitis with cellulitis. PROGRESS: Gulshan was seen and examined again at bedside today. Overall, his symptoms are improving. His cellulitis seems to be subsiding. He still has a lot bogginess in the area of the prepatellar bursa. It does not appear to be a septic bursitis, it does not appear to be deep infection. There is no effusion in the knee and no signs of septic arthritis of the knee joint. Overall, his symptoms are improving. He is able to walk to the bathroom and get around. He did have an episode where he had left knee pain this morning, but he says that that has resolved. PHYSICAL EXAMINATION: RIGHT KNEE: There is still a large boggy prepatellar bursa. It does not appear to be a septic bursitis. The erythema around the area is resolving. He is lying with his knee in full extension, but he has difficulty getting full flexion because of the prepatellar bursitis. LABS: Blood cultures have shown no growth to date. IMPRESSION: Right knee bursitis with surrounding cellulitis. PLAN: The bursitis should resolve with time. Oftentimes, I would do an aspiration of the bursitis but I am concerned with the surrounding cellulitis to introduce bacteria into the space. I think I would allow the cellulitis to slowly improve and I will see him in the office in about 2 weeks. If the bursitis is still present and the cellulitis is improved, I may do an aspiration of the prepatellar bursa in the office at that time. Because this is a workman's comp case, I would put him on restrictions of no kneeling when he returns to work. I will continue to adjust his restrictions as I see him in the office. I believe he will be on about another 24 hours of IV antibiotics and we will possibly discharge him to home with oral antibiotics tomorrow or Sunday depending on how his knee looks. We will continue to follow. ELENI
--- NOTE | 2017-03-11 14:53 | Progress Note ---
Subjective Date of Service: Mar 11, 2017. Subjective Pt evaluation today including: conversation w/ patient, physical exam, chart review, lab review, review of studies, review of inpatient medication list Problem List Medical Problems: (1) Laceration of right calf without complication Status: Acute (2) Prepatellar bursitis Status: Acute (3) Septic arthritis of knee, right Status: Acute Review of Systems Constitutional: No fever, No chills, No sweats, No weight loss, No weakness Respiratory: No cough, No sputum, No wheezing, No shortness of breath, No dyspnea on exertion Cardiac: No chest pain, No orthopnea, No PND, No edema Abdomen: No pain, No nausea, No vomiting, No diarrhea, No constipation Musculoskeletal: + joint pain, + muscle pain, + swelling Male : No dysuria, No urinary frequency, No incontinence, No slowing stream Neurologic: No memory loss, No paralysis, No weakness, No numbness/tingling, No vertigo Psychiatric: No depression symptoms, No anhedonism, No anxiety, No insomnia Endo: No fatigue, No excessive thirst Skin: No rash, No itch Objective Vital Signs Date Time Temp Pulse Resp B/P (MAP) Pulse Ox O2 Delivery O2 Flow Rate FiO2 03/11/17 07:45 Room Air 03/11/17 07:26 37.0 71 16 134/83 (100) 95 Room Air 03/10/17 23:24 37.3 77 16 169/90 (116) 95 Room Air 03/10/17 23:15 Room Air 03/10/17 22:45 83 98 21 03/10/17 16:00 Room Air 03/10/17 15:40 36.5 83 20 149/76 (100) 97 Room Air Physical Exam General Appearance: WD/WN, no apparent distress Eyes: normal inspection, PERRL, EOMI, sclerae normal Neck: supple, no adenopathy, thyroid normal, no JVD Respiratory/Chest: chest non-tender, lungs clear, normal breath sounds, no respiratory distress Cardiovascular: regular rate, rhythm, no edema, no gallop, no JVD Abdomen: normal bowel sounds, non tender, soft, no organomegaly Extremities: normal range of motion, non-tender, normal inspection, no pedal edema Neurologic/Psychiatric: no motor/sensory deficits, alert, normal mood/affect, oriented x 3 Laboratory Results Last 24 Hours Test 03/11/17 05:32 03/11/17 12:54 Creatinine 0.87 mg/dl Est Creatinine Clear Calc Drug Dose 124.6 ml/min Estimated GFR () 117.5 Estimated GFR (Non- 101.3 Vancomycin Level Trough 8.2 mcg/ml Bedside Glucose 102 mg/dl Assessment and Plan 51 yo M Hx HPL. Pt suffered trauma to his R knee 3 days [employer]AK OUT WORK[employer]. He developed warmth and inflammation and presented to the ER one day ago. He was evaluated in the ER and discharged with a course of Augmentin. Since then the affected area has expanded. He now describes severe pain in his knee, a headache, generalized body aches and a low grade fever. 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 Pt is admitted for patellar bursitiis and underlying cellulitis Cont vanc and zosyn at this time Redness and pain and swelling improved No leukocytosis or fevers Likely transition to PO narcotics and antibx in 24 hrs. Appreciate Ortho recs We will continue Lipitor for HPL. Full code - Heparin prophylaxis
[2017-03-11 15:00] VITALS: BP 138/80; PULSE 74; TEMP 36.8; O2SAT 95
[2017-03-11] MEDS: ATORVASTATIN 20 MG TAB PO SCH (21:25)
[2017-03-11 23:40] VITALS: BP 121/70; PULSE 76; TEMP 38; O2SAT 95
[2017-03-12 01:00] VITALS: TEMP 37.7
[2017-03-12] MEDS: MoRPHine SULFATE 2 MG/ML CARP IV PRN (02:12)
[2017-03-12 05:28] VITALS: TEMP 37.1
[2017-03-12] MEDS: VANCOMYCIN INJ 1,500 MG in SODIUM CHLORIDE 0.9% 500ML 500 ML IV SCH ×2 (05:32→14:00)
[2017-03-12] MEDS: HEPARIN SOD 5000 UNIT/0.5 ML CARP SQ SCH ×2 (05:33→14:00)
[2017-03-12] MEDS: OXYCODONE HCL IR 5 MG TAB (IMMEDIATE RELEASE) PO PRN ×2 (05:46→11:52)
[2017-03-12] MEDS: CLINDAMYCIN IV 600 MG in DEXTROSE 5% 50ML 50 ML IV SCH ×2 (06:41→15:00)
[2017-03-12 06:46] LABS: CREATININE 0.93 mg/dl (0.60-1.40)
[2017-03-12 07:53] VITALS: BP 122/68; PULSE 65; TEMP 37.1; O2SAT 95
[2017-03-12] MEDS: PANTOprazole SOD 40 MG TAB PO SCH (08:18)
--- NOTE | 2017-03-12 10:19 | PROGRESS NOTE ---
DATE: 03/12/2017 CHIEF COMPLAINT: Right prepatellar bursitis with cellulitis. PROGRESS: Gulshan was seen and examined at bedside today. Overall, his knee looks much better. He still has trouble flexing past 90 degrees. He is able to get up and ambulate around to the bathroom and back. His pain is well controlled. He has no new complaints. PHYSICAL EXAMINATION: The swelling on the anterior aspect of the knee seems to be subsiding a little bit. He has no effusion of his knee. He has no signs of septic arthritis. The cellulitis seems to have almost resolved completely. IMPRESSION: Prepatellar bursitis with cellulitis of the right knee. PLAN: His symptoms seem to be improving. I think it is safe to send him home on oral antibiotics. I will see him in my office in 2 weeks. At that time if he is still having a lot of a large prepatellar effusion, I may aspirate in the office, but I do want to aspirate it now. He is just getting over an active cellulitis infection in the area. He is concerned about his work status. I talked him about that. I would probably keep him on sedentary work only until I see him back in the office in 2 weeks.
[2017-03-12 11:06] VITALS: BP 122/68; PULSE 65; TEMP 37.1; O2SAT 95
[2017-03-12] MEDS ORDERED: DXY100 PO (11:07)
[2017-03-12] MEDS ORDERED: OXYC-57 PO (11:07)
--- NOTE | 2017-03-12 11:08 | Discharge Instructions ---
Discharge Instructions Date of Service Mar 12, 2017. Admission Reason for Admission: Cellulitis, Joint Infection Discharge Discharge Diagnosis / Problem: cellulitis Discharge Goals Goal(s): Diagnostic testing, Therapeutic intervention Activity Recommendations Activity Limitations: resume your previous activity . Current Hospital Diet Patient's current hospital diet: Regular Diet Discharge Diet Recommended Diet: Regular Diet Pending Studies Studies pending at discharge: no Medical Emergencies . Who to Call and When: Medical Emergencies: If at any time you feel your situation is an emergency, please call 911 immediately. . Non-Emergent Contact Non-Emergency issues call your: Primary Care Provider, Specialist (orthopaedic specialist) Call Non-Emergent contact if: temperature is above 101, your pain is unusual for you . . "Provider Documentation" section prepared by Trey Andersen. . VTE Core Measure Inpt VTE Proph given/why not?: Unfractionated heparin SQ
--- NOTE | 2017-03-12 13:08 | DIAGNOSTIC IMAGING REPORT ---
RIGHT VENOUS DOPP LOWER EXT UNILAT CLINICAL HISTORY: 51 years-old Male presenting with swelling Right. TECHNIQUE: Real-time grayscale and color and spectral Doppler ultrasound imaging of the veins of the right lower extremity was performed. Compression and augmentation were also utilized. COMPARISON: None. FINDINGS: Right: Common femoral vein: Patent. Femoral vein: Patent. Greater saphenous vein: Patent. Popliteal vein: Patent. Calf veins: Limited visualization. Other: None. IMPRESSION: No evidence of deep venous thrombosis. Electronically signed by: Jared Martinez M.D. 03/12/2017 1:07 PM Dictated Date/Time: 03/12/2017 1:07 PM
[2017-03-12] MEDS ORDERED: VANCOMYCIN TROUGH ONE (13:30)
[2017-03-12 15:05] LABS: BENZODIAZEPINE, URINE NEG (NEG); COCAINE,URINE NEG (NEG); PHENCYCLIDINE, URINE NEG (NEG)
--- NOTE | 2017-03-12 16:00 | Progress Note ---
Subjective Date of Service: Mar 12, 2017. Problem List Medical Problems: (1) Laceration of right calf without complication Status: Acute (2) Prepatellar bursitis Status: Acute (3) Septic arthritis of knee, right Status: Acute Objective Vital Signs Date Time Temp Pulse Resp B/P (MAP) Pulse Ox O2 Delivery O2 Flow Rate FiO2 03/12/17 05:28 37.1 03/12/17 01:00 37.7 03/11/17 23:45 Room Air CPAP 03/11/17 23:40 38.0 76 16 121/70 (87) 95 BiPAP 03/11/17 15:40 Room Air 03/11/17 15:00 36.8 74 20 138/80 (99) 95 Room Air 03/11/17 07:45 Room Air Laboratory Results Last 24 Hours Test 03/11/17 12:54 03/12/17 05:35 Bedside Glucose 102 mg/dl Creatinine 0.93 mg/dl Est Creatinine Clear Calc Drug Dose 116.6 ml/min Estimated GFR () 111.3 Estimated GFR (Non- 96.1 Assessment and Plan 51 yo M Hx HPL. 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 Has prepatella bursitis and cellulitis with history of staph osteomyelitis Pre patellar bursitiis and underlying cellulitis vanc and zosyn Full code - Heparin prophylaxis
--- NOTE | 2017-03-12 16:08 | Discharge Summary ---
Discharge Summary Date of Service Mar 12, 2017. Discharge Summary Admission Date: Mar 10, 2017 at 01:18 Discharge Date: Mar 12, 2017 Discharge Disposition: Home Principal Diagnosis: pre patella bursitis Consultations: Dr Mina Fisher Medication Reconciliation New Medications: Doxycycline Hyclate (Doxycycline Hyclate) 100 Mg Cap 100 MG PO BID, #28 DOSE Oxycodone/Acetaminophen 5MG/325MG (Percocet 5MG/325MG) Tab 2 TABLETS PO Q6H PRN for Pain, #30 TAB Continued Medications: Atorvastatin (Atorvastatin Calcium) 20 Mg Tab 20 MG PO HS Esomeprazole Magnesium (Nexium) 40 Mg Capcr 40 MG PO DAILY, CAP Multiple Vitamins W/ Minerals (One Daily Mens) 1 Tab Tab 1 TAB PO DAILY Discontinued Medications: Amoxicillin & Pot Clavulanate (Augmentin 875-125 mg) 1 Tab Tab 875 MG PO BID for 10 Days, #20 TAB 1 Refill Discharge Exam Review of Systems: Constitutional: No fever, No chills, No weakness Respiratory: No cough, No sputum, No shortness of breath, No dyspnea on exertion Cardiovascular: + edema, No chest pain, No orthopnea Abdomen: No pain, No nausea, No diarrhea, No constipation Musculoskeletal: + joint pain, + muscle pain, + swelling Neurologic: No memory loss, No paralysis, No weakness Physical Exam: General Appearance: WD/WN, + mild distress Eyes: PERRL, EOMI Neck: supple, no JVD Respiratory/Chest: chest non-tender, lungs clear, normal breath sounds Cardiovascular: regular rate, rhythm, no murmur Abdomen / GI: normal bowel sounds, non tender, soft Extremities: + pedal edema, + swelling Neurologic/Psychiatric: alert, oriented x 3 Hospital Course 51 yo M suffered trauma to his R knee 3 days [employer]. Has prepatella bursitis and cellulitis with history of staph osteomyelitis Pre patellar bursitiis and underlying cellulitis initially treated with vanc and zosyn, good improvement, had negative venous doppler, will be discharged on doxycycline close follow up with Dr Fisher Full code Total Time Spent: Greater than 30 minutes This includes examination of the patient, discharge planning, medication reconciliation, and communication with other providers. Discharge Instructions Please refer to the electronic Patient Visit Report (Discharge Instructions) for additional information.
[2017-03-15 10:30] LABS: COD UR NEGATIVE NG/ML (CUTOFF=50); HYDROCOD UR NEGATIVE NG/ML (CUTOFF=50); HYDROMOR UR NEGATIVE NG/ML (CUTOFF=50); MORPHINE UR 90 NG/ML (CUTOFF=50); NORHYDROCODONE CONF UR NEGATIVE NG/ML (CUTOFF=50); OXYMORPH UR 788 NG/ML (CUTOFF=50)
== END 2017-03-12 15:20 | disposition home or self-care (01) | DRG 558 ==
LOC: C.EDB 22:39 → C.MSN 03-10 01:18 → ENRESERV 03-10 01:24
PROVIDERS: ADMIT Internal Medicine; ATTEND Internal Medicine
DX: M70.41 Prepatellar bursitis, right knee (principal); F41.9 Anxiety disorder, unspecified; F32.9 Major depressive disorder, single episode, unspecified; K21.9 Gastro-esophageal reflux disease without esophagitis; E78.00 Pure hypercholesterolemia, unspecified; G47.33 Obstructive sleep apnea (adult) (pediatric); Z87.442 Personal history of urinary calculi; Z80.9 Family history of malignant neoplasm, unspecified; Z83.3 Family history of diabetes mellitus

== ENCOUNTER → 2017-11-15 | Day surgery (SDC) | payer OTHER ==
[2017-11-13 11:20] VITALS: Ht 175.3 cm; Wt 104.5 kg
[~2017-11-15] VITALS: Ht 175.3 cm; Wt 104.5 kg
[~2017-11-15] MED LIST changes: -AMOX875T PO; +DEXAMETHASONE SOD INJ 4 MG/ML VIAL ONE; +LIDOCAINE HCL 1% MPF 5 ML VIAL ONE; -LPT/20 PO; +LPT20 PO; +NAPR-1169 PO; +SODIUM CHLORIDE 0.9% 1000ML 1,000 ML IV SCH
--- NOTE | 2017-11-15 08:36 | History & Physical Bridge Note ---
H&P Re-Evaluation Bridge Note: I have examined the patient, reviewed the History & Physical and in the interval since the performance of the History & Physical I have noted the following changes of clinical significance: No changes noted
--- NOTE | 2017-11-15 08:54 | Discharge Instructions-SurgCtr ---
Discharge Instructions Date of Service Nov 15, 2017. Visit Reason for Visit: Disc Herniation Discharge Discharge Diagnosis / Problem: same Discharge Goals Goal(s): Improve function Medications Stopped Medications Name(s): naproxin stopped on 11-12-17 Activity Recommendations Activity Limitations: resume your previous activity Anesthesia . Post Anesthesia Instructions: If you have had General Anesthesia or IV Sedation: * Do not drive today. * Resume driving when surgeon permits. * Do not make important decisions or sign legal documents today. * Call surgeon for: 1. Temperature elevations greater than 101 degrees F. 2. Uncontrollable pain. 3. Excessive bleeding. 4. Persistent nausea and vomiting. 5. Medication intolerance (nausea, vomiting or rash). * For nausea and vomiting use only clear liquids such as: tea, soda, bouillon until nausea subsides, then gradually increase diet as tolerated. * If you have any concerns or questions, call your surgeon's office. If physician is unavailable and it is an emergency, call 911 or go to the nearest emergency room. . Diet Recommendations Home Diet: no limitations Procedures Procedures Performed: L4-5 Epidural Steroid Injection Pending Studies Studies pending at discharge: no Medical Emergencies . Who to Call and When: Medical Emergencies: If at any time you feel your situation is an emergency, please call 911 immediately. . Non-Emergent Contact Non-Emergency issues call your: Primary Care Provider . . "Provider Documentation" section prepared by Eren Winter. .
--- NOTE | 2017-11-15 08:56 | Discharge Instructions-SurgCtr ---
Discharge Instructions Date of Service Nov 15, 2017. Visit Reason for Visit: Disc Herniation Discharge Discharge Diagnosis / Problem: same Discharge Goals Goal(s): Decrease discomfort Medications Stopped Medications Name(s): naproxin stopped on 11-12-17 Activity Recommendations Activity Limitations: as noted below Lifting Limitations: gradually increase as tolerated Anesthesia . Post Anesthesia Instructions: If you have had General Anesthesia or IV Sedation: * Do not drive today. * Resume driving when surgeon permits. * Do not make important decisions or sign legal documents today. * Call surgeon for: 1. Temperature elevations greater than 101 degrees F. 2. Uncontrollable pain. 3. Excessive bleeding. 4. Persistent nausea and vomiting. 5. Medication intolerance (nausea, vomiting or rash). * For nausea and vomiting use only clear liquids such as: tea, soda, bouillon until nausea subsides, then gradually increase diet as tolerated. * If you have any concerns or questions, call your surgeon's office. If physician is unavailable and it is an emergency, call 911 or go to the nearest emergency room. . Diet Recommendations Home Diet: no limitations Procedures Procedures Performed: L4-5 Epidural Steroid Injection Pending Studies Studies pending at discharge: no Medical Emergencies . Who to Call and When: Medical Emergencies: If at any time you feel your situation is an emergency, please call 911 immediately. . Non-Emergent Contact Non-Emergency issues call your: Primary Care Provider . . "Provider Documentation" section prepared by Eren Winter. .
--- NOTE | 2017-11-15 08:57 | [facility] Post Operative Brief Note ---
Immediate Operative Summary Operative Date Nov 15, 2017. Pre-Operative Diagnosis Disc Herniation L4-L5 Post-Operative Diagnosis same Procedure(s) Performed L4-[address] Cristofer Winter Ring Packer Surgeon(s) 0 Estimated Blood Loss 0 Findings Consistent with Post-Op Diagnosis Specimens none Anesthesia Type Local
[2017-11-15 09:24] VITALS: BP 159/80; PULSE 61; O2SAT 97
--- NOTE | 2017-11-15 10:26 | OPERATIVE REPORT ---
DATE OF OPERATION: 11/15/2017 PREOPERATIVE DIAGNOSIS: Disk herniation, lumbar spine. POSTOPERATIVE DIAGNOSIS: Same. PROCEDURE: Include an epidural steroid injection, L4-L5 lumbar spine. SURGEON: Eren Winter DO. COMPLICATIONS: Zero. BLOOD LOSS: Zero. ANESTHETIC: Local. DESCRIPTION OF PROCEDURE: The patient was taken to the minor procedure room and placed prone, prepped and draped sterile. We advanced the 22 gauge Tuohy needle to the epidural space at L4-5. Air acceptance technique, volume acceptance technique used. 2 mL of dexamethasone injected without incident. No complications. I attest to the content of the Intraoperative Record and any orders documented therein. Any exception s are noted below.
== END | disposition home or self-care (01) ==
LOC: X.SURG 07:19
PROVIDERS: ATTEND Orthopaedic Surgery Orthopaedic Surgery of the Spine
DX: M51.26 Other intervertebral disc displacement, lumbar region (principal); E78.00 Pure hypercholesterolemia, unspecified; K21.9 Gastro-esophageal reflux disease without esophagitis

== ENCOUNTER 2025-04-01 06:03 | Observation (INO) ==
--- NOTE | 2025-03-26 08:44 | Anesthesiology Consultation ---
Date of Service March 26, 2025 Assessment & Plan (1) Encounter for pre-operative examination: Chart Review Chart Review: Acceptable Risk for Surgery and Patient NOT seen in Pre Admission Testing - Patient informed by nursing to stop Mounjaro 7 days prior to surgery. Last dose of Mounjaro scheduled 03/18/25. Will be off Mounjaro x 14 days prior to DOS on 04/01/25 -Infectious Disease screening: Per PAT nursing assessment on 03/25/25. No known infectious disease contacts in past 10 days or current infectious disease symptoms. No recent travel outside the country. [place] [facility] office visit 02/27/25= "seen for follow up... Obesity- on Mounjaro... BARRY- CPAP... L testicular pain- scrotal u/s... HTN- stable... L shoulder pain- surgery 05/14/25.. L inguinal hernia- patient anticipates surgery 04/01/25. Patient would be cleared as a low risk... Vit D deficiency... ADHD..." History Surgery Operation Date: 04/01/25 08:50 Proposed Procedures p Robotic assisted Left Inguinal Hernia Repair, Possible Right - Juan Cates DO, FACS Height/Weight Height: 5 ft 9 in Weight: 97.522 kg Allergies Allergy/AdvReac Type Severity Reaction Status Date / Time cats Allergy Unknown itchy Uncoded 03/25/25 16:08 eyes, runny nose dust Allergy Unknown itchy Uncoded 03/25/25 16:08 eyes, runny nose Medications Home Medications Medication Instructions Recorded Confirmed Last Taken atorvastatin 20 mg tablet 20 mg PO HS 04/12/20 03/25/25 Unknown pantoprazole 20 mg tablet,delayed 20 mg PO BID 04/12/20 03/25/25 Unknown release multivitamin 1 tab PO QAM 04/04/21 03/25/25 Unknown bupropion HCl 150 mg 24 hr tablet, 150 mg PO QAM #90 tabs 10/22/24 03/25/25 Unknown extended release cyclobenzaprine 10 mg tablet 20 mg PO UD PRN muscle spasm 03/25/25 03/25/25 Unknown naproxen sodium 220 mg tablet 440 mg PO HS 03/25/25 03/25/25 Unknown (Aleve) tadalafil 5 mg tablet 5 mg PO QAM 03/25/25 03/25/25 Unknown tirzepatide 12.5 mg/0.5 mL 12.5 mg subcut WK 03/25/25 03/25/25 03/18/25 subcutaneous pen injector tramadol 50 mg tablet 50 mg PO UD PRN Pain 03/25/25 03/25/25 Unknown Past Medical History Medical History ADHD BPH (benign prostatic hyperplasia) not that pt aware of DDD (degenerative disc disease), lumbar GERD (gastroesophageal reflux disease) History of marie (1998) hx 20 % upper body , hx lung failure. Full recovery. History of kidney stones x1 Hyperlipidemia Pinched nerve back and neck, multiple. limited rom in neck. Shoulder problem left, per pt: shoulder replacement and rotator cuff sx upcoming 05/14/2025 Sleep apnea cpap Past Family History Family History Father Lymphoma Cancer Mother Cancer Other No family history of adverse response to anesthesia Past Surgical History Surgical History H/O nasal septoplasty History of biopsy off femur History of colonoscopy History of esophagogastroduodenoscopy (EGD) History of eyelid surgery History of hernia surgery History of hydrocelectomy bilt History of incision and drainage left shoulder History of laminectomy (2017) w/ cyst removal , L4-5 per pt. History of surgery (2018) right bicep repair History of tonsillectomy and adenoidectomy History of tooth extraction History of wisdom tooth extraction Social History Smoking Status: Never smoker Do You Dip or Chew Tobacco: No Hx Alcohol Use: No Alcohol type: beer alcohol intake frequency: a few times a month Hx Substance Use: No substance use type: does not use Lab Results Anesthesia Preop Results Results Anesthesia Widget: WBC 4.75 K/ul (4.8-10.8) L 03/20/25 Hgb 16.2 g/dl (14.0-18.0) 03/20/25 Hct 45.9 % (42.0-52.0) 03/20/25 Plt 150 K/uL (130-400) 03/20/25 Na 139 mmol/L (136-145) 03/20/25 K 3.9 mmol/L (3.5-5.1) 03/20/25 Cl 105 mmol/L (98-107) 03/20/25 CO2 27 mmol/L (21-32) 03/20/25 BUN 22 mg/dl (6-23) 03/20/25 Creat 0.92 mg/dl (0.6-1.4) 03/20/25 Glucose Level 103 mg/dl (70-99(Fasting)) H 03/20/25 Testing Electrocardiogram Date: 03/20/25 Findings: + NSR @ (67bpm) LAFB When compared to EKG from Aug 30, 2020- no significant change was found per cardio Chest X-Ray Date: 03/20/25 Findings: + NAD Stress Test Date: 09/17/23 Type: exercise Conclusions 1. Normal ECG treadmill test predicting a low probability of significant coronary artery disease. 2. No exercise-induced chest pain. 3. No significant dysrhythmia Cervical Spine Date: 09/05/24 Cervical spine x ray Impression: No acute bony abnormality
--- NOTE | 2025-03-31 10:47 | History & Physical Report ---
Date of Service March 31, 2025 Assessment & Plan (1) Inguinal hernia, left: Plan: symptomatic left inguinal hernia, desires repair. He understands that not all of his symptoms may improve with surgery. plan for robotic assisted laparoscopic left inguinal hernia repair, possible right risks discussed to include but not limited to bleeding, infection, recurrence, chronic pain, damage to surrounding structures including testicle, need for future or more extensive surgery, and risks of anesthesia educated on signs and symptoms of incarceration, obstruction, and strangulation return precautions given, call with questions or concerns (2) Left varicocele: (3) Hydrocele, left: (4) BARRY on CPAP: (5) GERD (gastroesophageal reflux disease): (6) Hypercholesteremia: History of Present Illness Primary Care Provider: Jose Alberto George, DO Here for surgery. Initially referred for left inguinal hernia. He has been having left testicular and groin pain over the past several months. He is not sure exactly when it started, no inciting event. 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 He did have a hydrocelectomy on both sides as an infant. No other abdominal surgeries. Not on any blood thinners. No changes since last visit Allergies Allergy/AdvReac Type Severity Reaction Status Date / Time cats Allergy Unknown itchy Uncoded 03/25/25 16:08 eyes, runny nose dust Allergy Unknown itchy Uncoded 03/25/25 16:08 eyes, runny nose Home Medications Medication Instructions Recorded Confirmed Type atorvastatin 20 mg tablet 20 mg PO HS 04/12/20 03/25/25 History pantoprazole 20 mg tablet,delayed 20 mg PO BID 04/12/20 03/25/25 History release multivitamin 1 tab PO QAM 04/04/21 03/25/25 History bupropion HCl 150 mg 24 hr tablet, 150 mg PO QAM #90 tabs 10/22/24 03/25/25 Rx extended release cyclobenzaprine 10 mg tablet 20 mg PO UD PRN muscle spasm 03/25/25 03/25/25 History naproxen sodium 220 mg tablet 440 mg PO HS 03/25/25 03/25/25 History (Aleve) tadalafil 5 mg tablet 5 mg PO QAM 03/25/25 03/25/25 History tirzepatide 12.5 mg/0.5 mL 12.5 mg subcut WK 03/25/25 03/25/25 History subcutaneous pen injector tramadol 50 mg tablet 50 mg PO UD PRN Pain 03/25/25 03/25/25 History Past Med/Surg History Problem List Encounter for pre-operative examination Fatigue Left varicocele Inguinal hernia, left Hydrocele, left Hypersomnia Nocturnal hypoxemia DDD (degenerative disc disease), lumbar Obesity Pain in testicle BARRY on CPAP Family history of cancer in mother Etiology unclear. Mother at 74yo with mets to her kidney or liver FHx: lymphoma Father of lymphoma at the age of 37yo ADHD BPH w urinary obs/LUTS Erectile dysfunction History of colon polyps GERD (gastroesophageal reflux disease) (Chronic) Lumbar stenosis with neurogenic claudication (Chronic) Hypercholesteremia (Chronic) Low vitamin D level on the lower side per pt. Medical History ADHD BPH (benign prostatic hyperplasia) not that pt aware of DDD (degenerative disc disease), lumbar GERD (gastroesophageal reflux disease) History of marie (1998) hx 20 % upper body , hx lung failure. Full recovery. History of kidney stones x1 Hyperlipidemia Pinched nerve back and neck, multiple. limited rom in neck. Shoulder problem left, per pt: shoulder replacement and rotator cuff sx upcoming 05/14/2025 Sleep apnea cpap Surgical History H/O nasal septoplasty History of biopsy off femur History of colonoscopy History of esophagogastroduodenoscopy (EGD) History of eyelid surgery History of hernia surgery History of hydrocelectomy bilt History of incision and drainage left shoulder History of laminectomy (2018) w/ cyst removal , L4-5 per pt. History of surgery (2019) right bicep repair History of tonsillectomy and adenoidectomy History of tooth extraction History of wisdom tooth extraction Family History Father Lymphoma Cancer Mother Cancer Other No family history of adverse response to anesthesia Social History Smoking Status: Never smoker Second Hand Exposure: No; Do You Dip or Chew Tobacco: No; Hx Alcohol Use: No Hx Substance Use: No Preferred Language: Telugu Communication Ability: Effective Visual Impairment: No Limitations Hearing Ability: Normal Customs Collector Required: No Beliefs That Will Affect Care: None marital status: Current Living Situation: Spouse and Family Current Living Situation Comment: Lives with and niece current occupational status: employed How many Children do You have: 5 Feels Safe at Home: Yes Childhood Exposure to Second-Hand Smoke: Yes Diet: regular caffeine: No during the past year weight has: decreased > 10 lbs Dental Care, Regularly: Yes Physical Activity Frequency: Daily Seatbelt Use: always Sunscreen Use: No Do you think of yourself as: straight/heterosexual Sexual Activity: has been sexually active within the last 12 months Gender Identity: Male Assistive Devices: CPAP and Other Assistive Devices Comment: front false tooth, reading glasses Review of Systems Review of Systems: All systems reviewed & are unremarkable except as noted in HPI & below Physical Exam Constitutional: WD/WN, vitals as above + obese Respiratory: normal respiratory effort, lungs clear to auscultation Cardiovascular: RRR, no murmur, no edema Gastrointestinal (Abdomen): normal bowel sounds, soft, nontender, no hepatosplenomegaly Percussion/Palpation: + hernia (Small reducible LIH, no RIH) Results & Data Results & Data Diagnostic Findings SCROTAL ULTRASOUND CLINICAL HISTORY: N50.819 - Testicular pain, unspecified COMPARISON STUDY: None. TECHNIQUE: Grayscale and color and duplex Doppler sonography of the scrotum was performed. FINDINGS: Right testicle measures 4 x 2.4 x 3 cm. There is a 3 mm oval increased echogenicity focus at the right testicle. There is no testicular mass otherwise. There is normal Doppler flow. There are a few right epididymal cysts measuring up to 11 mm. No significant hydrocele or varicocele. Left testicle measures 4.2 x 2.3 x 3.3 cm. There is normal Doppler flow. Epididymis is unremarkable. There is a small hydrocele. There is a moderate varicocele. There is a small reducible fat-containing left inguinal hernia. IMPRESSION: 1. Small echogenic focus at the right testicle does not have suspicious characteristics, could represent small calcification. Follow-up testicular ultrasound recommended in 6 months to monitor stability. 2. Otherwise no evidence of testicular mass or torsion bilaterally. 3. Left-sided varicocele, small left-sided hydrocele, and small reducible fat- containing left inguinal hernia. PG Care Time/CCT Total # of Minutes Spent Total Time Spent with Patient: Total time spent is greater than 50% in coordination of care (as documented) at patient's floor/unit and/or counseling patient: Coding Level of Care Code None Diagnoses Inguinal hernia, left K40.90 Left varicocele I86.1 Hydrocele, left N43.3 BARRY on CPAP G47.33 GERD (gastroesophageal reflux disease) K21.9 Hypercholesteremia E78.00
[2025-04-01] MEDS ORDERED: ROCURONIUM BROMIDE 10 MG/ML 5 ML VIAL IV ONE ×2 (06:43→08:28)
[2025-04-01] MEDS ORDERED: ONDANSETRON INJ 2 MG/ML 2 ML VIAL ONE (06:43)
[2025-04-01] MEDS ORDERED: DEXAMETHASONE SOD INJ 4 MG/ML VIAL ONE (06:43)
[2025-04-01] MEDS ORDERED: LIDOCAINE 2% 2 ML VIAL/AMP(20MG/ML) INFIL ONE (06:43)
[2025-04-01] MEDS ORDERED: PROPOFOL IV EMULSION 10 MG/ML 20 ML VIAL IV ONE (06:43)
[2025-04-01] MEDS ORDERED: MIDAZOLAM HCL 1 MG/ML 2ML VIAL ONE (06:44)
[2025-04-01] MEDS ORDERED: ACETAMINOPHEN 1000 MG/100 ML IV IV ONE (06:45)
[2025-04-01] MEDS: LR 15ML/HR IV SCH (06:45)
[2025-04-01] MEDS ORDERED: FLUMAZENIL 0.1 MG/1 ML 10 ML VIAL IV PRN (07:17)
[2025-04-01] MEDS ORDERED: ATROPINE SULFATE 0.1 MG/ML 10ML SYR IV PRN (07:17)
[2025-04-01] MEDS ORDERED: NALOXONE HCL 0.4 MG/1 ML VIAL/CARP IV PRN (07:17)
[2025-04-01] MEDS ORDERED: PROMETHAZINE HCL 6.25 MG in SODIUM CHLORIDE 0.9% 50 ML IV PRN (07:17)
[2025-04-01] MEDS ORDERED: ONDANSETRON INJ 2 MG/ML 2 ML VIAL IV PRN ×2 (07:17→09:02)
--- NOTE | 2025-04-01 07:29 | History & Physical Bridge Note ---
Date of Service April 01, 2025 History & Physical Bridge Note I have examined the patient, reviewed the History & Physical and in the interval since the performance of the History & Physical I have noted the following changes of clinical significance: no changes noted
[2025-04-01] MEDS ORDERED: SUGAMMADEX SODIUM 200 MG/2 ML VIAL IV ONE (08:57)
--- NOTE | 2025-04-01 09:01 | Operative Report ---
PG Post Operative Report Pre & Post Diagnosis Operation Date: 04/01/25 07:30 Pre-Op Diagnosis: Left inguinal Hernia Post-Op Diagnosis: Left indirect inguinal Hernia, cord lipoma I identified the patient and participated in the time-out.: Yes Procedure Operation Date: 04/01/25 07:30 Actual Procedures p Robotic assisted Left Inguinal Hernia Repair with Mesh(Not Applicable) - Juan Cates DO, FACS Surgeon Juan Cates DO, SYLWIA Pressure Supervisor Gely Spaulding Estimated Blood Loss 5 Findings Consistent with Post-Op Diagnosis Small indirect left inguinal hernia with large cord lipoma. ProGrip mesh placed on the left. No obvious right inguinal hernia. Cord lipoma sent to pathology. Specimens Left cord lipoma Anesthesia Type General Complications none Disposition Accompanied Patient To Recovery: No Disposition: Recovery Room Indications 59-year-old male with symptomatic left inguinal hernia confirmed by imaging, plan for robotic left inguinal hernia repair, possible right. The risks of the procedure were discussed, all questions were answered, and the patient agreed to proceed with surgery as planned. Description of Procedure The patient was properly identified, consented, and taken to the operating room where he was placed in the supine position. General endotracheal anesthesia was induced. SCDs and a safety belt were placed. A eaton catheter was placed. Preoperative antibiotics were administered. The patient's groins and abdomen were prepped and draped in the standard sterile fashion. Surgical timeout was performed and all parties were in agreement that this was the correct patient and procedure to be performed and we continued as planned. An incision was made in the upper abdomen just off of the midline. The Veress needle was inserted and saline drop test confirmed entry into the abdomen. The abdomen was insufflated with carbon dioxide which the patient tolerated without incident. The Veress needle was removed and the abdomen was entered using the Optiview technique and a 5 mm camera. The introducer was removed and the camera reinserted. No damage from initial trocar placement or Veress needle placement was identified. There were no abnormalities in the 4 quadrants of the abdomen. A small indirect inguinal hernia was identified on the left, and there was no obvious right inguinal hernia. 8 mm robotic ports were then placed in the right upper quadrant and left upper quadrant. The patient was placed in the Trendelenburg position. The robot was docked, and the camera and instruments were inserted. The peritoneum was incised approximately 6 cm above the defect, starting at the medial umbilical ligament and working laterally. The peritoneal flap was raised. Dissection began laterally at the anterior superior iliac spine. Michael's ligament was then dissected medially. The cord structures were circumferentially dissected. A small indirect inguinal hernia defect was identified. The peritoneum was reduced and the cord was skeletonized. A large cord lipoma was dissected away from the cord structures. This was later excised, placed in Endo Catch bag and removed. This was sent to pathology as specimen. Progrip mesh was placed on the left and covered the direct, indirect, and femoral spaces. The peritoneal flap was then closed with a running absorbable barbed suture. A small tear in the peritoneum was closed with a [id number] 3-0 Vicryl suture. The robot was undocked and the ports were removed. The skin of all port sites were closed with 4-0 Monocryl subcuticular suture, and Dermabond was placed over the incisions. The patient was extubated in the operating room and taken to the PACU for recovery without apparent incident. Any air in the scrotum was reduced, and the testicles were confirmed to be in the scrotum. All sponge, instrument, and needle counts were correct at the conclusion of the procedure. The patient tolerated the procedure well. The physician's customer service assistant was present and scrubbed for the entirety of the procedure, and was critical in positioning the patient, prepping and draping, retraction and exposure, driving the laparoscope, assistance with exchange of the robotic instruments, closure of the incisions, and placement of the dressings. I attest to the content of the Intraoperative Record and any orders documented therein. Any exceptions are noted below.
[2025-04-01] MEDS ORDERED: KETOROLAC TROMETHAMINE 15 MG/ML VIAL IV PRN (09:02)
[2025-04-01] MEDS ORDERED: MoRPHine SULFATE 2 MG/ML CARP IV PRN (09:02)
[2025-04-01] MEDS ORDERED: KETOROLAC 30 MG/ML VIAL ONE (09:19)
[2025-04-01] MEDS: MoRPHine SULFATE 4 MG/ML 1 ML CARP\\VIAL IV PRN (10:20)
--- NOTE | 2025-04-01 10:23 | Anesthesiology Progress Note ---
Date of Service April 01, 2025 Anesthesia Post Procedure Vital Signs Vital Signs: Temp Pulse Resp BP Pulse Ox O2 Del Method O2 Flow Rate 04/01/25 10:00 36.8 C 82 19 132/79 93 Room Air 0 04/01/25 09:50 80 20 128/78 95 Room Air 0 04/01/25 09:40 87 17 119/77 98 Oxymask 2 04/01/25 09:30 62 14 114/78 95 Oxymask 6 04/01/25 09:24 36.2 C L 85 13 136/75 95 Oxymask 6 04/01/25 06:26 37.0 C 75 20 136/85 96 Room Air Pain Intensity Abdomen: Pain Intensity: 4 Transfer of Care Handoff Completed per policy Notes Mental Status: alert / awake / arousable Patient Amnestic to Procedure: Yes Nausea / Vomiting: adequately controlled Pain: adequately controlled Airway Patency, RR, SpO2: stable & adequate BP & HR: stable & adequate Hydration State: stable & adequate Anesthetic Complications: no major complications apparent
[2025-04-01] MEDS ORDERED: Nursing to Pharmacy Communication SCH (10:30)
[2025-04-01] MEDS: HYDROmorphone INJ 1 MG/ML SYRINGE IV PRN (10:32)
[2025-04-01] MEDS: BUPIVACAINE 0.5 % 5 MG/1 ML MPF 30ML VIAL ONE (10:43)
[2025-04-01] MEDS: HYDROmorphone INJ 1 MG/ML SYRINGE ONE (10:57)
[2025-04-01] MEDS ORDERED: ACETAMINOPHEN 500 MG TAB PO PRN (14:00)
[2025-04-01] MEDS: HYDROmorphone INJ 0.5 MG/0.5 ML SYR IV STA (16:53)
[2025-04-01] MEDS: SODIUM CHLORIDE 0.9% 1,000 ML IV SCH (16:54)
[2025-04-01] MEDS: KETOROLAC TROMETHAMINE 15 MG/ML VIAL IV SCH (17:12)
[2025-04-01] MEDS: ACETAMINOPHEN 1,000 MG/100 ML VIAL IV SCH (17:12)
[2025-04-01] MEDS: ATORVASTATIN 20 MG TAB PO SCH (21:17)
--- NOTE | 2025-04-02 07:38 | Surgery Progress Note ---
Date of Service April 02, 2025 Assessment & Plan (1) Inguinal hernia, left: Plan: Patient is POD#1 s/p robotic assisted laparoscopic left inguinal hernia repair by Dr. Cates -Doing well this morning, tolerating diet, and pain is controlled -VSS, afebrile -Patient is stable from a surgical standpoint to be discharged today. He was given post-operative instructions and he will follow up with Dr. Cates in 2 weeks for his post-op check up Admission and Anticipated Discharge Date Admission Date: April 01, 2025 Subjective Postoperatively patient was admitted to the surgical service due to pain control This morning patient states he is feeling well and pain is better controlled Tolerating a diet without issue VSS and afebrile Physical Exam Constitutional: WD/WN, vitals as above Respiratory: normal respiratory effort, lungs clear to auscultation Cardiovascular: Rate/Rhythm: regular rate Gastrointestinal (Abdomen): Abdomen soft, nondistended, appropriate TTP over surgical sites. Incisions with Dermabond in place, c/d/i without any signs of infection present Left groin with anticipated swelling Skin: no rashes, warm and dry Results & Data Vital Signs (Past 12 Hours) Vital Signs Temp Pulse Pulse Resp BP Pulse Ox O2 Del Method 04/02/25 03:20 60 12 95 04/02/25 03:00 36.5 C 57 L 16 130/71 95 Room Air 04/01/25 23:41 36.4 C L 60 18 128/78 95 Room Air 04/01/25 23:14 67 17 95 FiO2 04/02/25 03:20 21 04/02/25 03:00 04/01/25 23:41 04/01/25 23:14 21 PG Care Time/CCT Total # of Minutes Spent Total Time Spent with Patient: Total time spent is greater than 50% in coordination of care (as documented) at patient's floor/unit and/or counseling patient: [place] [address] Post Operative Follow-Up Patient Type Established History Problem Focused Exam Problem Focused Medical Decision Making Straight Forward Diagnoses Inguinal hernia, left K40.90
[2025-04-02] MEDS: CYCLOBENZAPRINE HCL 10 MG TAB PO PRN (09:20)
[2025-04-02 15:57] VITALS: BP 135/79; PULSE 70; RESP 16; TEMP 97.5; O2SAT 94
== END 2025-04-02 17:58 | disposition home or self-care (01) ==
LOC: 3E 06:03 → ASU 06:03